=== PATIENT | male | born 1980 | race Hispanic/Latino ===

== ENCOUNTER 2018-12-02 07:20 | Day surgery (SDC) | payer MEDICARE, OTHER ==
[2018-11-25 14:09] VITALS: BMI 36.8
--- NOTE | 2018-12-01 21:40 | HP ---
HISTORY OF PRESENT ILLNESS: Mr. Traylor is a pleasant 38-year-old gentleman, presenting with severe left S1 radicular pattern of pain with a left L5 disk herniation as seen on MRI on a disc. He has treated this with physical therapy, injections, and medications, but would like to move forward with the surgery if deemed appropriate. PAST MEDICAL HISTORY: Significant for migraine headaches, depression, chronic pain syndrome. CURRENT MEDICATIONS: [place]. ALLERGIES: NO KNOWN DRUG ALLERGIES. PAST SURGICAL HISTORY: Unlisted. PHYSICAL EXAMINATION: GENERAL: The patient is alert and oriented x3. NEUROLOGIC: Gait is normal. No ataxia. Lower extremity exam is normal. Positive left straight leg raise. ASSESSMENT: Lumbar herniated disk and lumbar radiculopathy. PLAN: Dr. Alexandre met with the patient, reviewed imaging, and advocated for left L5 diskectomy. He explained to the patient the risks, benefits, and alternatives to the procedure. The patient expressed understanding and elected to move forward with surgery as planned. I do believe he is mentally competent and capable of making medical decisions for himself. We will move forward with surgery as planned. Job ID: [id number]
[2018-12-02] MEDS ORDERED: Fentanyl 100 MCG/2 ML VIAL ONE ×4 (07:48→10:47)
[2018-12-02] MEDS ORDERED: Bupivacaine HCl 0.5%/Epinephrine 1:200,000/PF 30 ml Vial ONE (08:00)
[2018-12-02] MEDS ORDERED: Thrombin 5000 UNITS/5 ML VIAL ONE (08:00)
[2018-12-02] MEDS ORDERED: Scopolamine 1.5 mg/72 hour Patch ONE (08:04)
[2018-12-02] MEDS ORDERED: Midazolam HCl 2 mg/2 ml Vial ONE (08:07)
[2018-12-02] MEDS ORDERED: Famotidine/PF 20 mg/2ml Vial ONE (08:07)
[2018-12-02] MEDS ORDERED: Promethazine HCl 25 MG/ML VIAL ONE (10:13)
[2018-12-02] MEDS ORDERED: Tamsulosin HCl 0.4 MG CAP ONE (10:47)
--- NOTE | 2018-12-02 11:52 | OP ---
DATE OF PROCEDURE: 12/02/2018 6TH GRADE TEACHER: Jose Whitten PA-C INDICATION: Pain. DIAGNOSIS: Lumbar radiculopathy. PROCEDURES PERFORMED: Left L5 hemilaminectomy, medial facetectomy, and decompression. ANESTHESIA: General. DESCRIPTION OF PROCEDURE: The patient was brought into the operating room and placed under general anesthesia. He was flipped from the supine to prone position on the operating room table. A linear incision was planned over the L5-S1 segment. After prepping and draping and after an appropriate perioperative pause, the incision was created. The soft tissues were swept left of midline. A self-retaining retractor was placed in the wound for optimal exposure. After confirming the appropriate level with C-arm fluoroscopy, high-speed cutting drill bit as well as 2, 3, and 4 mm Kerrisons were used to perform a laminectomy along the inferior aspect of L5 and the superior aspect of S1. The descending S1 nerve root was identified and mobilized medially. There was no significant protuberant disk mass and therefore an annulotomy was not performed. Removal of osteophytes alone was enough to decompress the lateral recess and decompress the descending left S1 nerve root. The wound was then irrigated. Hemostasis was maintained throughout. The wound was then closed in anatomic layers and a pressure dressing was applied. There were no known procedural complications. Job ID: [id number]
[2018-12-02] MEDS ORDERED: Acetaminophen/Codeine 30-300mg Tablet ONE (12:42)
== END 2018-12-02 13:30 | disposition home or self-care (01) ==
LOC: SDC 07:20
PROVIDERS: ATTEND Neurological Surgery
PROC: 01NB0ZZ Release Lumbar Nerve, Open Approach (ICD-10-PCS; principal; 2018-12-02)
DX: M51.16 Intervertebral disc disorders with radiculopathy, lumbar region (principal); G43.909 Migraine, unspecified, not intractable, without status migrainosus; F32.9 Major depressive disorder, single episode, unspecified; G89.4 Chronic pain syndrome; G47.30 Sleep apnea, unspecified; F41.9 Anxiety disorder, unspecified; F17.200 Nicotine dependence, unspecified, uncomplicated; Z79.899 Other long term (current) drug therapy; Z99.89 Dependence on other enabling machines and devices
CPT/HCPCS: 76000; J0670; J0690; J2250; J2550; J3010; S0028